=== PATIENT | female | born 1990 | race Caucasian/White ===

== ENCOUNTER 2023-06-22 16:13 | Emergency (ER) | payer SELFPAY ==
[2023-06-22 16:15] VITALS: BP 148/98; PULSE 135; RESP 18; TEMP 36.7; O2SAT 98; BMI 30.1
[2023-06-22 17:03] VITALS: PULSE 82; RESP 16; O2SAT 100
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
[2023-06-22 17:04] VITALS: BP 117/79; PULSE 87; RESP 16; TEMP 36.8; O2SAT 100
== END 2023-06-22 17:13 | disposition home or self-care (01) ==
LOC: ED 17:13
PROVIDERS: Emergency Provider Emergency Medicine; Visit Provider Emergency Medicine
DX: O9A.211 Injury, poisoning and certain other consequences of external causes complicating pregnancy, first trimester (principal); Z3A.11 11 weeks gestation of pregnancy; S39.012A Strain of muscle, fascia and tendon of lower back, initial encounter; V89.2XXA Person injured in unspecified motor-vehicle accident, traffic, initial encounter
CPT/HCPCS: 99282